=== PATIENT | female | born 1995 | race Caucasian/White ===

== ENCOUNTER → 2021-07-20 14:42 | Outpatient (BNVA) | payer SELFPAY | PROVIDERS: PCP Pediatrics; Visit Provider Physician Assistant | DX: Z02.79 Encounter for issue of other medical certificate (principal) ==

== ENCOUNTER 2023-07-10 15:00 | Outpatient (REF) | payer MEDICAID, SELFPAY ==
[2023-07-10 15:55] LABS: MANUAL DIFF FLAG NO
[2023-07-10 16:11] LABS: Basophils Percent Auto 0.5 % (0-2); Eosinophils Absolute Auto 0.1 X10*3/uL (0.0-0.4); Eosinophils Percent Auto 2.4 % (0-4); Hematocrit 41.7 % (37.0-47.0); Hemoglobin 13.9 g/dl (12.0-16.0); Imm Gran Abs Auto 0.01 X10*3/uL (0.00-0.03); Imm Gran Pct Auto 0.2 % (0.0-0.4); Lymphocytes Absolute Auto 1.6 X10*3/uL (1.2-4.9); Lymphocytes Percent Auto 26.4 % (20-40); Mean Corpuscular HGB Conc 33.3 g/dl (31.0-35.0); Mean Corpuscular Hemoglobin 30.3 pg (27.0-33.0); Mean Corpuscular Volume 90.8 fL (80.0-98.0); Mean Platelet Volume 10.2 fL (9.4-12.3); Monocytes Absolute Auto 0.6 X10*3/uL (0.1-1.2); Neutrophils Absolute Auto 3.6 x10*3/uL (2.0-8.3); Neutrophils Percent Auto 60.5 % (45-73); Platelet Count 271 X10*3/uL (160-400); Red Blood Count 4.59 X10*6/uL (4.20-5.50); Red Cell Distribution Width 11.7 % (11.0-16.0); White Blood Count 5.9 X10*3/uL (4.8-10.8)
[2023-07-10 16:24] LABS: Estimated Average Glucose 100 mg/dL; Hemoglobin A1c % 5.1 % (<6.0)
[2023-07-10 17:58] LABS: Alanine Aminotransferase 10 U/L (0-31); Albumin Level 4.4 g/dL (3.5-5.0); Alkaline Phosphatase 62 U/L (39-117); Anion Gap 12 (12-20); Aspartate Amino Transferase 14 U/L (5-31); Bilirubin Total 0.3 mg/dL (0.0-1.0); Blood Urea Nitrogen 13 mg/dL (9-16); Calcium 9.6 mg/dL (8.4-10.2); Carbon Dioxide 25 mmol/L (22-29); Chloride 108 mmol/L (96-108); Estimated Glomerular Filt Rate > 60; Glucose Random 92 mg/dL (60-115); Potassium 4.3 mmol/L (3.3-5.1); Sodium 141 mmol/L (135-145); Total Protein 7.9 g/dL (6.5-8.0)
[2023-07-10 18:16] LABS: TSH reflex Free T4 0.96 uIU/mL (0.32-4.0)
[2023-07-11 07:25] LABS: HIV AB/AG Nonreactive (Nonreactive); HIV Num 1 0.05 S/CO (0.00-0.99); ~HepC Num1 0.12 S/CO (0.00-0.79); ~Hepatitis C Antibody Nonreactive (Nonreactive)
[2023-07-11 07:28] LABS: Syphilis Screen Nonreactive (Nonreactive)
== END 2023-07-10 15:01 | disposition home or self-care (01) ==
LOC: HO.HHCL 15:00
PROVIDERS: Visit Provider General Practice
DX: Z00.00 Encounter for general adult medical examination without abnormal findings (principal); Z11.4 Encounter for screening for human immunodeficiency virus [HIV]
CPT/HCPCS: 36415; 80053; 83036; 84443; 85025; 86780; 86803; 87389

== ENCOUNTER 2024-05-26 16:49 | Outpatient (REF) | payer MEDICAID, SELFPAY ==
[2024-05-26 18:25] LABS: Free T4 (Free Thyroxine) 0.86 ng/dL (0.71-1.85); Thyroid Stimulating Hormone 0.76 uIU/mL (0.32-4.0)
== END 2024-05-26 16:50 | disposition home or self-care (01) ==
LOC: HO.HHCL 16:49
PROVIDERS: Visit Provider Family Medicine
DX: E04.1 Nontoxic single thyroid nodule (principal)
CPT/HCPCS: 36415; 84439; 84443

== ENCOUNTER 2024-10-08 | Outpatient (REF) | payer MEDICAID, SELFPAY ==
--- OUTSIDE RECORDS SUMMARY | 2024-10-16 14:23 | XMS_ITS | Encounter Summary ---
Author Organization [employer] Address [address] [facility] [address] [place] [address] Care Team Providers Care Material Handling Supervisor Name Role Phone Peyton Martinez MD Primary Care Provider [phone] Reason for Visit * Reason Comments Care Coordination C3 -[facility] Suellen reyez telephone call outreach Encounter Details Date Type Department Care Team (Latest Contact Info) Description 10/15/2024 Patient Outreach [facility] [address] [place], [place] [phone] Peyton Martinez MD [address] [place], [place] [phone] Care Coordination (C3 -CHRISTINE Zapata telephone call [...] encounter Progress Notes * Suellen Zapata - 10/15/2024 1:53 PM EST CHW Suellen Zapata placed outbound call to patient to follow up on SDOH needs. Patient's name, andaddress confirmed. CHW spoke to patient she is still waiting for the letter of the landlord then she will go to [facility]. Patient states is doing well. No further questions or concerns. CHW reinforced direct contact information or CM for any additional questions or concerns and extended clinic hours on Mondays and Wednesdays, and Walk-In Urgent Care Located in [facility]. Patient provided with after-hours line for [facility], , which offer night time triage service and option to transfer to iron worker apprentice provider if needed. Patient verbalizes understanding, and able to repeat back to credit underwriter. A follow up call willbe placed within 10 days, patient agrees with plan. documented in this encounter Plan of Treatment Not on file documented as of this encounter Visit Diagnoses Not on filedocumented in this encounter Additional Health Concerns Assessment Noted Time PHQ-9 Depression Total Score: 15 023 3:48 PM EDT documented as of this encounter Care Teams Material Handling Supervisor Relationship Specialty Start Date End Date Peyton Martinez MD [address] [place] [address] PCP - General Family Medicine 07/10/23 documented as of this encounter
--- OUTSIDE RECORDS SUMMARY | 2024-10-16 14:23 | XMS_ITS | Encounter Summary ---
Author Organization [employer] Address [address] [place] [address] Care Team Providers Care Shop Clerk Name Role Phone Peyton Martinez MD Primary Care Provider [phone] Encounter Details Date Type Department Care Team (Late st Contact Info) Description 10/12/2024 Orders Only [facility] [address] [place], [place] [phone] Peyton Martinez MD [address] [place], [place] [phone] Bacterial vaginosis (Primary Dx) Social History Tobacco Use Types [...] as of this encounter Visit Diagnoses Diagnosis Bacterial vaginosis- Primary Unspecified vaginitis and vulvovaginitis documented in this encounter Additional Health Concerns Assessment Noted Time PHQ-9 Depression Total Score: 15 023 3:48 PM EDT documented as of this encounter Care Teams Shop Clerk Relationship Specialty Start Date End Date Peyton Martinez MD [address] [place] [phone] PCP - General Family Medicine 07/10/23 documented as of this encounter
--- OUTSIDE RECORDS SUMMARY | 2024-10-16 14:23 | XMS_ITS | Encounter Summary ---
Author Organization [employer] Address [address] [facility] [address] [place] [address] Care Team Providers Care Environmental Permitting Specialist Name Role Phone Peyton Martinez MD Primary Care Provider [phone] Reason for Visit * Reason Comments Care Coordination C3 -[facility] Suellen reyez telephone call outreach Encounter Details Date Type Department Care Team (Latest Contact Info) Description 10/01/2024 Patient Outreach [facility] [address] [place], [place] [phone] Peyton Martinez MD [address] [place], [place] [phone] Care Coordination (C3 -CHRISTINE Zapata telephone call [...] outbound call to patient introducing herself from [facility] CM Department, in regards to offering CM-CHW program services. Patient's name and was confirmed. Patient agrees to participate in CHW- program for SDOH needs. SDOH screening completed: 10/01/24, CHW spoke to patient she owes selvin I suggested [facility] from the [facility]. CHW reinforced direct contact information for any additional questions or concerns and extended clinic hours on Mondays and Wednesdays, and Walk-In Urgent Care Located in [facility].Patient provided with after-hours line for [facility], , which offer night time triage serviceand option to transfer to operations supervisor 2nd shift provider if needed. Patient verbalizes understanding, and able torepeat back to blurb writer. documented in this encounter Plan of Treatment Not on file documented as of this encounter Visit Diagnoses Not on filedocumented in this encounter Additional Health Concerns Assessment Noted Time PHQ-9 Depression Total Score: 15 023 3:48 PM EDT documented as of this encounter Care Teams Environmental Permitting Specialist Relationship Specialty Start Date End Date Peyton Martinez MD [address] [place] [address] PCP - General Family Medicine 07/10/23 documented as of this encounter
--- OUTSIDE RECORDS SUMMARY | 2024-10-16 14:23 | XMS_ITS | Encounter Summary ---
Author Organization [employer] Address [address] [facility] [address] [place] [address] Care Team Providers Care Surface Supply Breathing Apparatus Name Role Phone Peyton Martinez MD Primary Care Provider [phone] Reason for Visit * Reason Onset Date Comments Results 10/12/2024 Encounter Details Date Type Department Care Team ([facility] st Contact Info) Description 10/12/2024 Telephone [facility] [address] [place], [place] [phone] Sandy Whitten RN [address] [place], [place] [phone] Results Social History Tobacco Use Types Packs/Day Years [...] PM EDT documented as of this encounter Miscellaneous Notes * Telephone Encounter - Sandy Whitten RN - 10/12/2024 8:44 AM EST TC placed to patient [phone] in regards to below message. Patient verbalized understanding andreports she would like to be tx with pills. Please send RX to the pharmacy. Patient is aware she will be contacted when the medication is ready for p/u. Patient to f/u PRN. Please send oral medication for BV to pharmacy ----- Message from Peyton Martinez MD sent at 10/11/2024 7:39 PM EST ----- Please call patient to let her know BV positive, nothing else came back positive as far as infection, and we are awaiting her HPV swab results. Would she like oral or vaginal treatemtn for BV? documented in this encounter Plan of Treatment Not on file documented as of this encounter Visit Diagnoses Not on filedocumented in this encounter Additional Health Concerns Assessment Noted Time PHQ-9 Depression Total Score: 15 023 3:48 PM EDT documented as of this encounter Care Teams Surface Supply Breathing Apparatus Relationship Specialty Start Date End Date Peyton Martinez MD [address] [place] [address] PCP - General Family Medicine 07/10/23 documented as of this encounter
--- OUTSIDE RECORDS SUMMARY | 2024-10-16 14:23 | XMS_ITS | Clinical Summary ---
Author Organization [facility] [employer] [facility] Address [address] [place] [address] Care Team Providers Care Waistline Joiner Name Role Phone Unavailable Primary Care Provider [...] Documents on File Type Date Recorded Patient Color Maker Formulator Expl 

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
--- OUTSIDE RECORDS SUMMARY | 2024-10-16 14:24 | XMS_ITS | Encounter Summary ---
Author Organization [employer] Address [address] [facility] [address] [place] [address] Care Team Providers Care Bark Press Operator Name Role Phone Peyton Martinez MD Primary Care Provider [phone] Reason for Visit * Reason Comments Pre-visit Planning SDOH screening negat violeta and tobacco screening positive Encounter Details Date Type Department Care Team (Late st Contact Info) Description 09/29/2024 Patient Outreach [facility] [address] [place], [place] [phone] Peyton Martinez MD [address] [place], [place] [phone] Pre-visit Planning (SDOH screening negative and tobacco [...] documented as of this encounter Care Teams Bark Press Operator Relationship Specialty Start Date End Date Peyton Martinez MD [address] [place] [address] PCP - General Family Medicine 07/10/23 documented as of this encounter
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
--- OUTSIDE RECORDS SUMMARY | 2024-10-16 14:24 | XMS_ITS | Encounter Summary ---
Author Organization [employer] Address [address] [facility] [address] [place] [address] Care Team Providers Care Waterproofing Machine Operator Name Role Phone Peyton Martinez MD Primary Care Provider [phone] Encounter Details Date Type Department Care Team (Late st Contact Info) Description 10/08/2024 Orders Only [facility] MEDICINE [address] [place], [place] [phone] Peyton Martinez MD [address] [place], [place] [phone] Social History Tobacco Use Types Packs/Day Years [...] as of this encounter Miscellaneous Notes * Result Encounter Note - Peyton Martinez MD - 10/08/2024 11:59 PM EST Please call patient to let her know BV positive, nothing else came back positive as far as infection, and we are awaiting her HPV swab results. Would she like oral or vaginal treatemtn for BV? documented in this encounter Plan of Treatment Not on file documented as of this encounter Procedures Procedure Name Priority Date/Time Associated Diagnosis Comments BACTERIAL VAGINOSIS PANEL Routine 10/08/2024 12:00 AM EST documented in this encounter Results * (ABNORMAL) Bacterial Vaginosis (10/08/2024 12:00 AM EST) TRICHOMONAS VAGINALIS DETECTION BY PCR NOT DETECTED Not Detect [facility] BACTERIAL VAGINOSIS DETECTION BY PCR POSITIVE(A) Negative [facility] Comment:The BV organism targ ets of [...] DETECTION BY PCR NOT DETECTED Not Detect [facility] Florence glab krusei PCR NOT DETECTED Not Detect [facility] 10/08/2024 10/08/2024 Peyton Martinez MD LAB MICROBIOLOGY - GENERAL ORD ERABLES Final Result [facility] [address] [place] [address] [phone] documented in this encounter Visit Diagnoses Not on filedocumented in this encounter Additional Health Concerns Assessment Noted Time PHQ-9 Depression Total Score: 15 023 3:48 PM EDT documented as of this encounter Care Teams Waterproofing Machine Operator Relationship Specialty Start Date End Date Peyton Martinez MD [address] [place] [address] PCP - General Family Medicine 07/10/23 documented as of this encounter
--- OUTSIDE RECORDS SUMMARY | 2024-10-16 14:24 | XMS_ITS | Encounter Summary ---
Author Organization [employer] Address [address] [facility] [place] [address] Care Team Providers Care Sales Development Executive Name Role Phone Peyton Martinez MD Primary Care Provider [phone] Encounter Details Date Type Department Care Team (Late st Contact Info) Description 06/17/2024 Orders Only [facility] MEDICINE [address] [place], [place] [phone] Angeline Razo MD [address] [place], [place] [phone] Social History Tobacco Use Types Packs/Day Years [...] documented as of this encounter Care Teams Sales Development Executive Relationship Specialty Start Date End Date Peyton Martinez MD [address] [place] [phone] PCP - General Family Medicine 07/10/23 documented as of this encounter
--- OUTSIDE RECORDS SUMMARY | 2024-10-16 14:24 | XMS_ITS | Encounter Summary ---
Author Organization [employer] Address [address] [facility] [address] [place] [address] Care Team Providers Care Supervisor Machine Workers Name Role Phone Peyton Martinez MD Primary Care Provider [phone] Encounter Details Date Type Department Care Team [...] documented as of this encounter Care Teams Supervisor Machine Workers Relationship Specialty Start Date End Date Peyton Martinez MD [address] [place] [address] PCP - General Family Medicine 07/10/23 documented as of this encounter
--- OUTSIDE RECORDS SUMMARY | 2024-10-16 14:24 | XMS_ITS | Encounter Summary ---
Author Organization [employer] Address [address] [facility] [address] [place] [address] Care Team Providers Care Mold Setter Name Role Phone Peyton Martinez MD Primary Care Provider [phone] Reason for Referral * Consultation (Urgent) - Closed Specialty Diagnoses / Procedures Referred By Contac t Referred To Contact Physical Therapy Diagnoses BPV (benign positional vertigo), bilateral Angeline Razo MD [address] [place] [address] Phone: tel: fax: [facility] Physical Therapy [address] [place] [address] Phone: tel: fax: Referral ID Status Reason Start Date Expiration Date V isits Requested Visits Authorized [id number] Closed Specialty Services Required 06/17/2024 06/17/2025 1 1 Encounter Details Date Type Department Care Team ([facility] st Contact Info) Description 06/17/2024 Orders Only [facility] MEDICINE [address] [place], [place] [phone] Angeline Razo MD [address] [place] [address] [phone] BPV (benign positional vertigo), bilateral (Primary Dx) [...] documented as of this encounter Care Teams Mold Setter Relationship Specialty Start Date End Date Peyton Martinez MD [address] [place] [address] PCP - General Family Medicine 07/10/23 documented as of this encounter
== END 2024-10-08 00:01 | disposition home or self-care (01) ==
LOC: HO.LNP
PROVIDERS: Visit Provider General Practice
DX: E66.3 Overweight (principal)
CPT/HCPCS: 88175

== ENCOUNTER 2024-10-08 16:15 | Outpatient (REF) | payer MEDICAID, SELFPAY ==
[2024-10-08 17:38] LABS: MANUAL DIFF FLAG NO
[2024-10-08 17:50] LABS: Basophils Absolute Auto 0.1 X10*3/uL (0.0-0.2); Basophils Percent Auto 0.9 % (0-2); Eosinophils Absolute Auto 0.1 X10*3/uL (0.0-0.4); Eosinophils Percent Auto 2.6 % (0-4); Hematocrit 40.3 % (37.0-47.0); Hemoglobin 13.4 g/dl (12.0-16.0); Imm Gran Abs Auto 0.01 X10*3/uL (0.00-0.03); Imm Gran Pct Auto 0.2 % (0.0-0.4); Lymphocytes Absolute Auto 1.5 X10*3/uL (1.2-4.9); Lymphocytes Percent Auto 28.8 % (20-40); Mean Corpuscular HGB Conc 33.3 g/dl (31.0-35.0); Mean Corpuscular Hemoglobin 30.5 pg (27.0-33.0); Mean Corpuscular Volume 91.6 fL (80.0-98.0); Mean Platelet Volume 10.1 fL (9.4-12.3); Monocytes Absolute Auto 0.4 X10*3/uL (0.1-1.2); Monocytes Percent Auto 7.5 % (2-11); Neutrophils Absolute Auto 3.2 x10*3/uL (2.0-8.3); Platelet Count 287 X10*3/uL (160-400); Red Cell Distribution Width 11.7 % (11.0-16.0); White Blood Count 5.4 X10*3/uL (4.8-10.8)
[2024-10-08 18:56] LABS: Alanine Aminotransferase 7 U/L (0-31); Albumin Level 3.9 g/dL (3.5-5.0); Alkaline Phosphatase 75 U/L (39-117); Anion Gap 10 (12-20); Aspartate Amino Transferase 17 U/L (5-31); Bilirubin Total 0.2 mg/dL (0.0-1.0); Blood Urea Nitrogen 14 mg/dL (9-16); Calcium 8.9 mg/dL (8.4-10.2); Carbon Dioxide 24 mmol/L (22-29); Chloride 109 mmol/L (96-108); Estimated Glomerular Filt Rate > 60; Glucose Random 86 mg/dL (60-115); Potassium 4.1 mmol/L (3.3-5.1); Sodium 139 mmol/L (135-145); Total Protein 7.5 g/dL (6.5-8.0)
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
--- OUTSIDE RECORDS SUMMARY | 2024-10-08 19:34 | XMS_ITS | Encounter Summary ---
Author Organization [employer] Address [address] [facility] 7t [place] [address] Care Team Providers Care Cash Clerk Name Role Phone Peyton Martinez MD Primary Care Provider [phone] Reason for Visit * Reason Comments Care Coordination C3 -[facility] Suellen reyez telephone call outreach Encounter Details Date Type Department Care Team (Latest Contact Info) Description 10/01/2024 Patient Outreach [facility] [address] [place], [place] [phone] Peyton Martinez MD [address] [place], [place] [phone] Care Coordination (C3 -CHRISTINE Zapata telephone call outreach) Social History Tobacco Use Types Packs/Day Years Used Date Smoking Tobacco: Never Smokeless Tobacco: Never Alcohol Use Standard Drinks/Week Comments Not Currently [...] Don't know 07/10/2023 12 :18 PM EDT documented as of this encounter Progress Notes * Suellen Zapata - 10/01/2024 11:25 AM EST CHW Suellen Zapata placed outbound call to patient introducing herself from [facility] CM Department, in regards to offering CM-CHW program services. Patient's name and was confirmed. Patient agrees to participate in CHW- program for SDOH needs. SDOH screening completed: 10/01/24, CHW spoke to patient she owes selvin I suggested [facility] with a letter from the [facility]. CHW reinforced direct contact information for any additional questions or concerns and extended clinic hours on Mondays and Wednesdays, and Walk-In Urgent Care Located in [facility] of [facility].Patient provided with after-hours line for [facility], , which offer night time triage serviceand option to transfer to senior market intelligence consultant provider if needed. Patient verbalizes understanding, and able torepeat back to tech writer. documented in this encounter Plan of Treatment Not on file documented as of this encounter Visit Diagnoses Not on filedocumented in this encounter Additional Health Concerns Assessment Noted Time PHQ-9 Depression Total Score: 15 023 3:48 PM EDT documented as of this encounter Care Teams Cash Clerk Relationship Specialty Start Date End Date Peyton Martinez MD [address] [place] [phone] PCP - General Family Medicine 07/10/23 documented as of this encounter
--- OUTSIDE RECORDS SUMMARY | 2024-10-08 19:34 | XMS_ITS | Clinical Summary ---
Author Organization [facility] Address [address] [place] [address] Care Team Providers Care Glass Tube Bender Name Role Phone Unavailable Primary Care Provider Unavailabl e Social History Tobacco Use Types Packs/Day Years Used Date Smoking Tobacco: Never Assessed Sex and Gender Information Value Date Recorded Sex Assigned at Not on file Gender Identity Not on file Sexual Orientation Not on file Plan of Treatment Health Maintenance Due Date Last Done Comments DTaP,Tdap,and Td Vaccines (1 - Tdap) 2013 Hepatitis B Vaccines (1 of 3 - 19+ 3-dose series) 2013 Cervical Cancer Screening: P ap Smear 2015 Depression Screening 08/12/2022 HIV Screening 08/12/2022 Hepatitis C Screening 08/12/2022 Social Influencers of Health Screening 08/12/2022 COVID-19 Vaccine ( - 2023-2 5 season) 2024 Influenza Vaccine (#1) 2024 HIB Vaccines Aged Out No longer eligi ble based on patient's age to complete this topic HPV Vaccines Aged Out No longer eligi ble based on patient's age to complete this topic Hepatitis A Vaccines Aged Out No long er eligible based on patient's age to complete this topic IPV Vaccines Aged Out No longer eligi ble based on patient's age to complete this topic MMR Vaccines Aged Out No longer eligi ble based on patient's age to complete this topic Meningococcal ACWY Vaccine Aged Out N o longer eligible based on patient's age to complete this topic Pneumococcal Vaccine: Pediat rics (0 to 5 Years) and At-Risk Patients (6 to 64 Years) Aged Out No longer eligible b ased on patient's age to complete this topic RSV Immunization Patients Un verna 20 months Aged Out No longer eligible b ased on patient's age to complete this topic Varicella Vaccines Aged Out No longer eligible based on patient's age to complete this topic Advance Directives Documents on File Type Date Recorded 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
--- OUTSIDE RECORDS SUMMARY | 2024-10-08 19:34 | XMS_ITS | Encounter Summary ---
Author Organization [employer] Address [address] [facility] 7[address] [place] [address] Care Team Providers Care Local Delivery Driver Name Role Phone Peyton Martinez MD Primary Care Provider [phone] Reason for Referral * Consultation (Urgent) - Closed Specialty Diagnoses / Procedures Referred By Contac t Referred To Contact Physical Therapy Diagnoses BPV (benign positional vertigo), bilateral Angeline Razo MD [address] [place] [address] Phone: tel: fax: [facility] [address] [place] [address] Phone: tel: fax: Referral ID Status Reason Start Date Expiration Date V isits Requested Visits Authorized [id number] Closed Specialty Services Required 06/17/2024 06/17/2025 1 1 Encounter Details Date Type Department Care Team ([facility] st Contact Info) Description 06/17/2024 Orders Only [facility] [address] [place], [place] [phone] Angeline Razo MD [address] [place] [address] [phone] BPV (benign positional vertigo), bilateral (Primary Dx) Social History Tobacco Use Types Packs/Day Years [...] housing situation today? I have sania albarado 07/10/[address] you li ve. Do you have problems with any of the following? None of the above 07/10/2023 Food Insecurity Answer Date Recorded Within the past 12 months, y ou worried that your food would run out before you got money to buy more: Never True 07/10/2023 Within the past 12 months,th e food you bought just didn't last and you didn't have enough money to get more: Never True 09/2022 Transportation Answer Date Recorded In the past [...] Recorded Patient Health Questionnaire-2 Score 3 07/10/2023 Comments Unknown Sex and Gender Information Value Date Recorded Sex Assigned at Female 07/10/2023 12:18 PM EDT Legal Sex Female 12:15 PM EDT Gender Identity Female 07/10/2023 12:18 PM EDT Sexual Orientation Don't know 07/10/2023 12 :18 PM EDT documented as of this encounter Plan of Treatment Scheduled Referrals Name Type Priority Associated Diagnoses Orde r Schedule Referral to Physical Therapy Outpatient Referral Urgent BPV (benign positional vertigo), bilateral Expected: 06/17/2024 (Approximate), Expires: 06/17/2025 documented as of this encounter Visit Diagnoses Diagnosis BPV (benign positional vertigo), bilateral- Primary documented in this encounter Additional Health Concerns Assessment Noted Time PHQ-9 Depression Total Score: 15 023 3:48 PM EDT documented as of this encounter Care Teams Local Delivery Driver Relationship Specialty Start Date End Date Peyton Martinez MD [address] [place] [address] PCP - General Family Medicine 07/10/23 documented as of this encounter
--- OUTSIDE RECORDS SUMMARY | 2024-10-08 19:34 | XMS_ITS | Encounter Summary ---
Author Organization [employer] Address [address] [facility] [address] [place] [address] Care Team Providers Care Abalone Processor Name Role Phone Peyton Martinez MD Primary Care Provider [phone] Reason for Visit * Reason Comments Pre-visit Planning SDOH screening negat violeta and tobacco screening positive Encounter Details Date Type Department Care Team (Late st Contact Info) Description 09/29/2024 Patient Outreach [facility] [address] [place], [place] [phone] Peyton Martinez MD [address] [place], [place] [phone] Pre-visit Planning (SDOH screening negative and tobacco screening positive) Social History Tobacco Use Types Packs/Day Years [...] is your housing situation today? I have housing today, but I am worried about losing housing in the future 09/29/[address] you li ve. Do you have problems with any of the following? None of the above 09/29/2024 Food Insecurity Answer Date Recorded Within the [...] as of this encounter Progress Notes * Merle Blancas - 09/29/2024 10:28 AM EST CC Merle placed successful outbound call to patient for pre-visit planning. Patient name and confirmed. Patient confirms appt date and time, and has transportation arrangements. Biggest concern for appointment at this time is thyroid issue and would like education on smoking cessationAppropriate screening completed in anticipation of appointment. Patient advised to bring to appointment a photo id and insurance card, SDOH positive. Patient looking for assistance with housing Referral will be placed. documented in this encounter Plan of Treatment Not on file documented as of this encounter Visit Diagnoses Not on filedocumented in this encounter Additional Health Concerns Assessment Noted Time PHQ-9 Depression Total Score: 15 023 3:48 PM EDT documented as of this encounter Care Teams Abalone Processor Relationship Specialty Start Date End Date Peyton Martinez MD [address] [place] [address] PCP - General Family Medicine 07/10/23 documented as of this encounter
--- OUTSIDE RECORDS SUMMARY | 2024-10-08 19:34 | XMS_ITS | Encounter Summary ---
Author Organization [employer] Address [address] [place] [address] Care Team Providers Care Health Analytics Consultant Name Role Phone Peyton Martinez MD Primary Care Provider Encounter Details Date Type Department Care Team (Late st Contact Info) Description 10/08/2024 3:30 PM EST Office Visit [facility] [address] [place], [place] [phone] Peyton Martinez MD [address] [place] [address] Overweight (Primary Dx) Social History Tobacco Use Types [...] your housing situation today? I have sania per 10/01/[address] you li [...] t he electric, gas, oil or water SupportPay threatened to shut off services in your [...] PM EDT documented as of this encounter Last Filed Vital Signs Vital Sign Reading [...] Mass Index 29.86 10/08/2024 3:40 PM EST documented in this encounter Plan of Treatment Scheduled Orders Name Type Priority Associated Diagnoses Order Schedule Bacterial Vaginosis Microbiology Routine Overweight Expected: 10/08/2024 (Approximate), Expires: 10/08/2025 Pap Smear Pathology and Cytology Routine Overweight Ordered: 10/08/2024 documented as of this encounter Procedures Procedure Name Priority Date/Time Associated Diagnosis Comments CBC WITH AUTO DIFFERENTIAL Routine 10/08/2024 4:18 PM EST Overweight COMPREHENSIVE METABOLIC PANEL Routine 10/08/2024 4:18 PM EST Overweight documented in this encounter Results * (ABNORMAL) Comprehensive Metabolic Panel (10/08/2024 4:18 PM EST) Sodium 139 135 - 145 mmol/L [facility] Potassium 4.1 3.3 - 5.1 mmol/L [facility] Chloride 109(H) 96 - 108 mmol/L [facility] Carbon Dioxide 24 22 - 29 mmol/L [facility] Anion Gap 10(L) 12 - 20 [facility] Urea Nitrogen (BUN) 14 9 - 16 mg/dL [facility] Creatinine, Serum 0.74 0.5 - 1.4 mg/dL [facility] Estimated Glomerular Filt Rate >60 [facility] Comment:Chronic Kidney Disea se: Estimated GFR < 60 mL/min/1.77v5Merolt Kidney Disease: Estimated GFR < 15 mL/min/1.73m2 Glucose 86 60 - 115 mg/dL [facility] Calcium 8.9 8.4 - 10.2 mg/dL [facility] Bilirubin, Total 0.2 0.0 - 1.0 mg/dL [facility] Aspartate Amino Transferase 17 5 - 31 U/L [facility] Alanine Aminotransferase 7 0 - 31 U/L [facility] Total Protein 7.5 6.5 - 8.0 g/dL [facility] Albumin Level 3.9 3.5 - 5.0 g/dL [facility] Alkaline Phosphatase 75 39 - 117 U/L [facility] Blood Venous blood specimen / Unknown 10/08/2024 4:18 PM EST 10/08/2024 5:34 PM EST us Peyton Martinez MD LAB BLOOD ORDERABLES Final Res ult [facility] [address] [place] [phone] * CBC auto differential (10/08/2024 4:18 PM EST) White Blood Count 5.4 4.8 - 10.8 X10*3/uL [facility] Red Blood Count 4.40 4.20 - 5.50 X10*6/uL [facility] Hemoglobin 13.4 12.0 - 16.0 g/dl [facility] Hematocrit 40.3 37.0 - 47.0 % [facility] Mean Corpuscular Volume 91.6 80.0 - 98.0 fL [facility] Mean Corpuscular Hemoglobin 30.5 27.0 - 33.0 pg [facility] Mean Corpuscular HGB Conc 33.3 31.0 - 35.0 g/dl [facility] Red Cell Distribution Width 11.7 11.0 - 16.0 % [facility] Platelet Count 287 160 - 400 X10*3/uL [facility] Mean Platelet Volume 10.1 9.4 - 12.3 fL [facility] Neutrophils Percent Auto 60.0 45 - 73 % [facility] Imm Gran Pct Auto 0.2 0.0 - 0.4 % [facility] Lymphocytes Percent Auto 28.8 20 - 40 % [facility] Monocytes Percent Auto 7.5 2 - 11 % [facility] Eosinophils Percent Auto 2.6 0 - 4 % [facility] Basophils Percent Auto 0.9 0 - 2 % [facility] NRBC Pct Auto 0.0 0.0 - 0.2 /100WBC [facility] Neutrophils Absolute Auto 3.2 2.0 - 8.3 x10*3/uL [facility] Imm Gran Abs Auto 0.01 0.00 - 0.03 X10*3/uL [facility] Lymphocytes Absolute Auto 1.5 1.2 - 4.9 X10*3/uL [facility] Monocytes Absolute Auto 0.4 0.1 - 1.2 X10*3/uL [facility] Eosinophils Absolute Auto 0.1 0.0 - 0.4 X10*3/uL [facility] Basophils Absolute Auto 0.1 0.0 - 0.2 X10*3/uL [facility] NRBC Abs Auto 0.000 0.0 - 0.012 X10*3/uL [facility] Blood Venous blood specimen / Unknown 10/08/2024 4:18 PM EST 10/08/2024 5:34 PM EST us Peyton Martinez MD LAB BLOOD ORDERABLES Final Res ult [facility] [address] [place] [phone] documented in this encounter Visit Diagnoses Diagnosis Overweight- Primary documented in this encounter Additional Health Concerns Assessment Noted Time PHQ-9 Depression Total Score: 15 023 3:48 PM EDT documented as of this encounter Care Teams Health Analytics Consultant Relationship Specialty Start Date End Date Peyton Martinez MD [address] [place] [address] PCP - General Family Medicine 07/10/23 documented as of this encounter
--- OUTSIDE RECORDS SUMMARY | 2024-10-08 19:34 | XMS_ITS | Encounter Summary ---
Author Organization [employer] Address [address] [place] [address] Care Team Providers Care Receiving Checker Name Role Phone Peyton Martinez MD Primary Care Provider [phone] Encounter Details Date Type Department Care Team (Latest Contact Info) Description 10/08/2024 Travel Social History Tobacco Use Types Packs/Day Years [...] as of this encounter Plan of Treatment Not on file documented as of this encounter Visit Diagnoses Not on filedocumented in this encounter Additional Health Concerns Assessment Noted Time PHQ-9 Depression Total Score: 15 023 3:48 PM EDT documented as of this encounter Care Teams Receiving Checker Relationship Specialty Start Date End Date Peyton Martinez MD [address] [place] [address] PCP - General Family Medicine 07/10/23 documented as of this encounter
--- OUTSIDE RECORDS SUMMARY | 2024-10-08 19:34 | XMS_ITS | Encounter Summary ---
Author Organization [employer] Address [address] [place] [address] Care Team Providers Care It Help Desk Associate Name Role Phone Peyton Martinez MD Primary Care Provider [phone] Encounter Details Date Type Department Care Team (Late st Contact Info) Description 06/17/2024 Orders Only [facility] [address] [place], [place] [phone] Angeline Razo MD [address] [place], [place] [phone] Social History Tobacco Use Types Packs/Day Years [...] documented as of this encounter Care Teams It Help Desk Associate Relationship Specialty Start Date End Date Peyton Martinez MD [address] [place] [id number] PCP - General Family Medicine 07/10/23 documented as of this encounter
[2024-10-09 10:47] LABS: Bacterial Vaginosis PCR POSITIVE (Negative); Candida Group PCR NOT DETECTED (Not Detect); Candida glab krusei PCR NOT DETECTED (Not Detect); Trichomonas vaginalis PCR NOT DETECTED (Not Detect)
== END 2024-10-08 16:16 | disposition home or self-care (01) ==
LOC: HO.HHCL 16:15
PROVIDERS: Visit Provider General Practice
DX: Z12.4 Encounter for screening for malignant neoplasm of cervix (principal); E66.3 Overweight
CPT/HCPCS: 36415; 80053; 81515; 85025; 87626